=== PATIENT | male | born 1950 | race Two or more races ===

== ENCOUNTER 2020-11-01 11:45 | Inpatient (IN) | payer OTHER ==
[~2020-11-01] VITALS: Ht 170.2 cm; Wt 81.6 kg
[2020-11-01] MEDS ORDERED: GABAPE PO (16:07)
[2020-11-01] MEDS ORDERED: CARDIZEM60 MG PO (16:07)
[2020-11-01] MEDS ORDERED: FORTAMET1000 MG PO (16:07)
[2020-11-01] MEDS ORDERED: LORATADIN PO (16:08)
[2020-11-01] MEDS ORDERED: FLEXERIL PO (16:09)
[2020-11-01] MEDS ORDERED: [UNRECOGNIZED DRUG - OTHER] PO (16:10)
[2020-11-03] MEDS ORDERED: ALPRAZOLAM1 MG (08:23)
[2020-11-03] MEDS ORDERED: LORATADINE10 MG (08:23)
[2020-11-03] MEDS ORDERED: SILDENAFIL CIT100 MG (08:24)
[2020-11-03] MEDS ORDERED: GABAPENTIN800 M1 PO (08:25)
[2020-11-03] MEDS ORDERED: CYCLOBENZAPRINE15 M1 PO (08:25)
[2020-11-09] MEDS ORDERED: PERCOCET 5-3251 EACH PO (09:50)
== END 2020-11-09 12:12 | disposition home or self-care (01) | DRG 330 ==
LOC: O/R 11-03 05:40 → SURH 11-03 05:40 → O/R 11-03 08:32 → SURH 11-03 11:45
PROVIDERS: Urology; ADMIT Surgery; ATTEND Surgery
PROC: 0T7C8DZ Dilation of Bladder Neck with Intraluminal Device, Via Natural or Artificial Opening Endoscopic (ICD-10-PCS; 2020-11-03)
PROC: 3E0F7SF Introduction of Other Gas into Respiratory Tract, Via Natural or Artificial Opening (ICD-10-PCS; 2020-11-03)
PROC: 0DTF0ZZ Resection of Right Large Intestine, Open Approach (ICD-10-PCS; principal; 2020-11-03 07:00)
PROC: 07BD0ZX Excision of Aortic Lymphatic, Open Approach, Diagnostic (ICD-10-PCS; 2020-11-03 07:00)
PROC: 30233N1 Transfusion of Nonautologous Red Blood Cells into Peripheral Vein, Percutaneous Approach (ICD-10-PCS; 2020-11-07)
DX: D12.0 Benign neoplasm of cecum (principal); K62.5 Hemorrhage of anus and rectum; R59.0 Localized enlarged lymph nodes; Z20.822 Contact with and (suspected) exposure to COVID-19; R33.8 Other retention of urine; N32.89 Other specified disorders of bladder; D64.9 Anemia, unspecified